=== PATIENT | male | born 1950 | race Caucasian/White ===

== ENCOUNTER 2017-11-14 03:02 | Emergency (ER) | payer OTHER ==
[~2017-11-14] VITALS: Ht 180.3 cm; Wt 71.7 kg
[2017-11-14] MEDS ORDERED: LIDOCAINE 2% JEL UROJET 10 ML MM ONE ×2 (03:10→03:30)
--- NOTE | 2017-11-14 03:16 | NUR ---
PT AA/OX4 COMPLAINING OF DIFFICULTY URNINATING. NAD. VSS. STABLE CONDITION. AWAITING MD EVAL/ORDERS
[2017-11-14 03:48] LABS: APPEARANCE,URINE SL CLOUDY (CLEAR); BILIRUBIN,URINE NEGATIVE (NEGATIVE); BLOOD, URINE 2+ Ery/uL (NEGATIVE); COLOR,URINE YELLOW (YELLOW); KETONES,URINE NEGATIVE (NEGATIVE); LEUKOCYTE ESTERASE ,URINE TRACE (NEGATIVE); NITRITE, URINE POSITIVE (NEGATIVE); PROTEIN,URINE 1+ mg/dl (NEGATIVE); UGLUCOSE NEGATIVE (NEGATIVE); UROBILINOGEN,URINE 0.2 EU/dL (0.2)
[2017-11-14 03:48] LABS: BASOPHILS % (AUTO) 0.6 % (0.0-2.0); EOSINOPHILS % (AUTO) 3.1 % (0.0-6.0); HEMATOCRIT 42 % (39-51); HEMOGLOBIN 13.8 g/dL (13.5-17.5); LYMPHOCYTES # (AUTO) 1.3 /CMM (0.8-4.8); LYMPHOCYTES % (AUTO) 18.1 % (20.0-44.0); MEAN CORPUSCULAR HEMOGLOBIN 30 PG (26.0-33.0); MEAN CORPUSCULAR HGB CONC 33 g/dl (31.0-36.0); MEAN CORPUSCULAR VOLUME 92 fL (80-96); MONOCYTES # (AUTO) 0.5 /CMM (0.1-1.30); MONOCYTES % (AUTO) 7.2 % (2.0-12.0); PLATELET COUNT (AUTO) 225 /CMM (150-450); RDW COEFFICIENT OF VARIATION 14.2 (11.5-15.0); RED BLOOD CELL COUNT(AUTO) 4.55 MIL/uL (4.5-6.0)
[2017-11-14 03:54] LABS: BACTERIA,URINE Many /HPF (None Seen); SQUAMOUS EPITHELIAL CELL,UR Rare /HPF (None Seen); WBC,URINE 81-100 /HPF (0-3)
[2017-11-14 03:57] LABS: CALCIUM, SERUM 8.9 mg/dL (8.5-10.1); CREATININE 1.1 mg/dL (0.6-1.3); POTASSIUM 3.9 mmol/L (3.5-5.1)
[2017-11-14] MEDS ORDERED: NITROFURANTOIN/NITROFURAN MAC 100 MG CAPSULE PO ONE (04:30)
[2017-11-14] MEDS ORDERED: NITROFURANTOIN/NITROFURAN MAC 100 MG CAPSULE ONE (04:36)
--- NOTE | 2017-11-14 04:41 | NUR ---
PT RESTING COMFORTABLY. NAD. VSS.
--- NOTE | 2017-11-14 05:07 | NUR ---
Patient discharged to home in stable condition. Written and verbal after care instructions given. Patient verbalizes understanding of instruction. PT AMBULATORY WITH STEADY GAIT UPON D/C.
[2017-11-14 05:09] VITALS: BP 112/78
== END 2017-11-14 05:09 | disposition home or self-care (01) ==
LOC: ER 03:06
DX: R33.8 Other retention of urine (principal); N40.0 Benign prostatic hyperplasia without lower urinary tract symptoms
CPT/HCPCS: 36415; 51702; 80048; 81001; 85025; 87086; 93005; 99285; A4606; J3490; 81000-TC; 87186-TC; Z7610

== ENCOUNTER 2022-08-10 08:17 | Inpatient (IN) | payer OTHER ==
[~2022-08-10] VITALS: Ht 180.3 cm; Wt 69.4 kg
[2022-08-10] MEDS ORDERED: CYCLOBENZAPRINE 10 MG TABLET ONE (10:52)
[2022-08-10] MEDS ORDERED: CYCLOBENZAPRINE 10 MG TABLET PO ONE (11:00)
--- NOTE | 2022-08-10 11:03 | NUR ---
BIB [facility] HIT WHILE CROSSING , RT LG PAIN 5 AMBULATORY NO LOSS OF CONSCIOUSNESSM, NOT IN DISTRESS. NURSING ORDERS CARRIED OUT
[2022-08-10] MEDS ORDERED: MORPHINE SULFATE INJ 2 MG/ML DISP.SYRIN ONE (11:24)
--- NOTE | 2022-08-10 11:26 | NUR ---
PA AT BEDSIDE FOR EVAL, ORDERED IMMOBILIZATION OF THE RT ARM, FOR IMAGING OF RT LEG,KNEE
[2022-08-10] MEDS ORDERED: MORPHINE SULFATE INJ 2 MG/ML DISP.SYRIN IV ONE (11:30)
--- NOTE | 2022-08-10 11:35 | NUR ---
BLOOD DRAWN AND SENT TO LAB
--- NOTE | 2022-08-10 11:40 | NUR ---
PT THINGS PUT IN A CLOTHES BAG AT BEDSIDE
[2022-08-10 11:41] LABS: BASOPHILS # (AUTO) 0.1 K/uL (0.0-0.2); BASOPHILS % (AUTO) 0.5 % (0.0-2.0); EOSINOPHILS % (AUTO) 0.1 % (0.0-6.0); HEMATOCRIT 50 % (39-51); HEMOGLOBIN 16.9 g/dL (13.5-17.5); LYMPHOCYTES # (AUTO) 0.5 K/uL (0.8-4.8); LYMPHOCYTES % (AUTO) 4.7 % (20.0-44.0); MEAN CORPUSCULAR HGB CONC 34 g/dl (31.0-36.0); MEAN CORPUSCULAR VOLUME 89 fL (80-96); MONOCYTES # (AUTO) 0.7 K/uL (0.1-1.30); MONOCYTES % (AUTO) 6.3 % (2.0-12.0); NEUTROPHILS # (AUTO) 9.5 K/uL (1.8-8.9); NEUTROPHILS % (AUTO) 88.4 % (43.0-81.0); PLATELET COUNT (AUTO) 157 K/uL (150-450); RED BLOOD CELL COUNT(AUTO) 5.59 MIL/uL (4.5-6.0); WHITE BLOOD COUNT (AUTO) 10.7 K/uL (4.3-11.0)
--- NOTE | 2022-08-10 11:48 | NUR ---
COVID SWAB DONE AND SENT TO LAB
[2022-08-10 11:51] LABS: CALCIUM, SERUM 9.5 mg/dL (8.5-10.1); POTASSIUM 3.8 mmol/L (3.5-5.1)
[2022-08-10] MEDS ORDERED: TAMS-12 PO (12:11)
[2022-08-10] MEDS ORDERED: ACETAMINOPHEN 325 MG TABLET PO PRN (14:00)
[2022-08-10] MEDS ORDERED: MORPHINE SULFATE INJ 2 MG/ML DISP.SYRIN IV PRN (14:00)
[2022-08-10] MEDS ORDERED: ONDANSETRON HCL/PF 4 MG/2 ML VIAL IVP PRN (14:00)
[2022-08-10] MEDS ORDERED: MULT-447 PO (14:15)
[2022-08-10] MEDS ORDERED: CHOL100043 PO (14:15)
--- NOTE | 2022-08-10 14:40 | NUR ---
GOT BED 309-1 ADMITTING INFORMED.
--- NOTE | 2022-08-10 15:00 | NUR ---
Nolberto cates in [facility] - 08/10/22 at 1501 by KAI pt roddy to JAIMEE JONAS 309-1
--- NOTE | 2022-08-10 15:01 | NUR ---
REPORT GIVEN TO JAIMEE JONAS FOR PT BISHOP FOR CONTINUE TREATMENT
--- NOTE | 2022-08-10 15:45 | NUR ---
MS SPRAY BLENDER NOTE RECEIVED PATIENT VIA GURNEY FROM ER AT 1330H ACCOMPANIED BY 1 ER STAFF. WITH ADMITTING DIAGNOSIS OF RIGHT TIBIAL PLATEAU FRACTURE. PATIENT IS AWAKE, A/O X4, VERBALLY RESPONSIVE, NICARAGUAN SPEAKING. PATIENT WITH MINIMAL PAIN ON RIGHT SHOULDER, NO MEDS GIVEN. NOTED WITH IV ACCESS ON LEFT AC, G #20, SL. BODY ASSESSMENT DONE, SKIN GENERALLY INTACT EXCEPT FROM WOUND ON LEFT ELBOW AND LEFT KNEE. PLACE PATIENT UNDER M/S CARE, V/S TAKEN, STABLE. SAFETY MEASURES IN PLACED, BED IN LOW AND LOCKED POSITION; BED ALARM ON; SIDE RAILS UP X2; CALL LIGHT WITHIN EASY REACH. WILL CONTINUE TO MONITOR PATIENT. Addendum: 08/10/22 at 1901 by PRITESH BATEMAN RN CORRECTION OF ERROR; INSTEAD OF LEFT ELBOW AND LEFT KNEE, IT IS RIGHT ELBOW AND RIGHT KNEE WOUND.
--- NOTE | 2022-08-10 16:15 | NUR ---
MS RN COMFORT MEASURES PROVIDED. PATIENT HAS NO COMPLAINS OF PAIN.
--- NOTE | 2022-08-10 19:06 | NUR ---
MS RN CLOSING NOTES: PATIENT AWAKE IN BED, A/O X4. NO COMPLAINS OF PAIN OR DISCOMFORT AT THIS TIME. ON ROOM AIR WITH EQUAL AND UNLABORED BREATHING. WITH IV ACCESS ON LEFT AC, G #20, SL. ABLE TO MAKE NEEDS KNOWN.SAFETY MEASURES IN PLACED, BED IN LOW AND LOCKED POSITION; BED ALARM ON; SIDE RAILS UP X2; CALL LIGHT WITHIN EASY REACH. WILL ENDORSE TO NIGHT NURSE FOR CONTINUITY OF CARE.
--- NOTE | 2022-08-10 19:37 | NUR ---
MS RN OPENING NOTE RECEIVED PATIENT IN BED, AWAKE, ALERT AND ORIENTED X4. ABLE TO COMMUNICATE NEEDS WITH THE STAFFS. AFEBRILE AND NOT IN ANY FORM OF ACUTE DISTRESS. BREATHING EVEN AND NON LABORED. NO C/O PAIN OR DISCOMFORT AT THIS TIME. WITH IV ACCESS ON LAC 20G-SL. WITH RIGHT KNEE IMMOBILIZER. SAFETY MEASURES IN PLACE. KEPT BED IN LOCKED AND IN LOW POSITION. SIDE RAILS UP X2. ADVISED TO USE THE CALL LIGHT WHEN IN NEED OF ASSISTANCE.
[2022-08-10 20:00] VITALS: BP 102/63
[2022-08-10] MEDS: HEPARIN SODIUM, PORCINE 5000 UNITS/1 ML VIAL SQ SCH (20:43)
--- NOTE | 2022-08-10 22:00 | NUR ---
MS RN NOTE PATIENT CLAIMED THAT HE HADN'T HAD ANY BOWEL MOVEMENT THIS DAY AND WAS ASKING FOR STOOL SOFTENER. NOTIFIED MD ELECTROPHONIC ENGINEER AND AWAITING FOR ORDER. PROVIDED PRUNE JUICE FOR THE MEANTIME TO HELP WITH BOWEL MOVEMENT.
[2022-08-10] MEDS: SENNOSIDES/DOCUSATE SODIUM 1 TAB TABLET PO SCH (23:58)
--- NOTE | 2022-08-11 00:07 | NUR ---
MS RN NOTE PATIENT C/O MILD PAIN (3/10) ON R LOWER LEG AND R ARM. PRN TYLENOL WAS GIVEN.
[2022-08-11 05:58] LABS: BASOPHILS % (AUTO) 0.5 % (0.0-2.0); EOSINOPHILS % (AUTO) 0.6 % (0.0-6.0); HEMATOCRIT 45 % (39-51); LYMPHOCYTES # (AUTO) 0.7 K/uL (0.8-4.8); LYMPHOCYTES % (AUTO) 9.7 % (20.0-44.0); MEAN CORPUSCULAR HGB CONC 33 g/dl (31.0-36.0); MEAN CORPUSCULAR VOLUME 91 fL (80-96); MONOCYTES # (AUTO) 0.7 K/uL (0.1-1.30); MONOCYTES % (AUTO) 9.1 % (2.0-12.0); NEUTROPHILS # (AUTO) 5.9 K/uL (1.8-8.9); NEUTROPHILS % (AUTO) 80.1 % (43.0-81.0); PLATELET COUNT (AUTO) 126 K/uL (150-450); RED BLOOD CELL COUNT(AUTO) 4.96 MIL/uL (4.5-6.0); WHITE BLOOD COUNT (AUTO) 7.3 K/uL (4.3-11.0)
--- NOTE | 2022-08-11 06:30 | NUR ---
MS RN CLOSING NOTE PATIENT IN BED, ASLEEP BUT EASY TO AROUSE AND RESPONSIVE. ALERT AND ORIENTED X4. ABLE TO COMMUNICATE NEEDS WITH THE STAFFS. AFEBRILE AND NOT IN ANY FORM OF ACUTE DISTRESS. BREATHING EVEN AND NON LABORED. WITH IV ACCESS ON LAC 20G-SL. WITH RIGHT KNEE IMMOBILIZER, NOTED WITH GOOD SKIN CIRCULATION. MEDICATED ORDERED. OFFERED AND ENCOURAGED FLUIDS ORDERED. SAFETY MEASURES IN PLACE. KEPT BED IN LOCKED AND IN LOW POSITION. SIDE RAILS UP X2. ADVISED TO USE THE CALL LIGHT WHEN IN NEED OF ASSISTANCE. ALL NURSING NEEDS ATTENDED. ENDORSED TO INCOMING SHIFT FOR CONTINUITY OF CARE.
[2022-08-11 06:34] LABS: CALCIUM, SERUM 9.2 mg/dL (8.5-10.1); CARBON DIOXIDE 29 mmol/L (21-32); CHLORIDE 105 mmol/L (98-107); CREATININE 0.9 mg/dL (0.6-1.3); GLUCOSE 113 mg/dL (74-106); PHOSPHORUS 4.4 mg/dL (2.5-4.9); POTASSIUM 4.1 mmol/L (3.5-5.1); SODIUM SERUM 142 mmol/L (136-145); UREA NITROGEN, BLOOD 11 mg/dL (7-18)
[2022-08-11 06:35] LABS: ALANINE AMINOTRANSFERASE 26 U/L (12-78); ALBUMIN 3.5 g/dL (3.4-5.0); ALKALINE PHOSPHATASE 69 U/L (46-116); ASPARTATE AMINOTRANSFERASE 16 U/L (15-37); MAGNESIUM 2.3 mg/dL (1.8-2.4)
[2022-08-11 06:36] LABS: TOTAL PROTEIN, SERUM 6.4 g/dL (6.4-8.2)
--- NOTE | 2022-08-11 07:10 | NUR ---
MS RN OPENING NOTE RECEIVED PATIENT IN AWAKE IN BED WITH HOB ELEVATED, AOX4, CALM, ABLE TO FOLLOW COMMANDS AND MAKE NEEDS KNOWN. AFEBRILE AND NOT SHOWING ANY FORM OF ACUTE DISTRESS. ON ROOM AIR, BREATHING EVEN AND NON LABORED. PATENT SALINE LOCK IV ACCESS ON LAC G#20, FLUSHING WELL. WITH RIGHT KNEE IMMOBILIZER, DENIES NOR PAIN OR DISCOMFORT AT THIS TIME. SAFETY MEASURES IN PLACE: BED LOCKED AND IN LOWEST POSITION. SIDE RAILS UP X2, ORIENTED TO ROOM AND STAFF, KNOWS HOW TO USE THE CALL LIGHT WHEN IN NEED OF ASSISTANCE. WILL CONTINUE TO MONITOR.
[2022-08-11] MEDS: HEPARIN SODIUM, PORCINE 5000 UNITS/1 ML VIAL SQ SCH ×2 (08:40→20:02)
[2022-08-11] MEDS: TAMSULOSIN 0.4 MG CAP.SR.24H PO SCH (08:40)
[2022-08-11] MEDS: MAGNESIUM HYDROXIDE 30 ML UDC PO PRN (08:54)
--- NOTE | 2022-08-11 08:54 | NUR ---
RN NOTES - DVT PUMPS ORDERED.
--- NOTE | 2022-08-11 08:58 | NUR ---
RN NOTES - MILK OF MAGNESIA 30 ML GIVEN, PATIENT HAS NO BOWEL MOVEMENT SINCE YESTERDAY. PATIENT GOES DAILY
--- NOTE | 2022-08-11 09:30 | NUR ---
RN NOTES - SCD PUMP APPLIED ON LEFT LEG
[2022-08-11 16:00] VITALS: BP 124/69
--- NOTE | 2022-08-11 19:15 | NUR ---
MS JAIMEE OPENING NOTE PATIENT IN BED, WITH HOB ELEVATED, AWAKE, A0X4. AFEBRILE AND NOT IN ANY FORM OF ACUTE DISTRESS. BREATHING EVEN AND NON LABORED. STILL C/O PAIN OR DISCOMFORT AT THIS TIME. STILL WITH IV ACCESS ON LAC 20G-SL, PATENT AND FLUSHING WELL. WITH RIGHT KNEE IMMOBILIZER. ALL DUE MEDS, ALL NEEDS MET. SAFETY MEASURES MAINTAINED: BED IN LOCKED AND IN LOW POSITION. SIDE RAILS UP X2. ENDORSED TO ASSEMBLER LEATHER GOODS NURSE. Addendum: 08/11/22 at 1936 by ANA MARÍA MIX RN ERRATUM: MS HERMOSILLO CLOSING NOTE
--- NOTE | 2022-08-11 19:23 | NUR ---
MS RN OPENING NOTE RECEIVED PATIENT IN BED, WITH HOB ELEVATED, AWAKE, ALERT AND ORIENTED X4. ABLE TO MAKE NEEDS KNOWN. AFEBRILE AND NOT IN ANY FORM OF ACUTE DISTRESS. BREATHING EVEN AND NON LABORED. NO C/O PAIN OR DISCOMFORT AT THIS TIME. WITH IV ACCESS ON LAC 20G-SL. WITH RIGHT KNEE IMMOBILIZER. SAFETY MEASURES IN PLACE. KEPT BED IN LOCKED AND IN LOW POSITION. SIDE RAILS UP X2. ADVISED TO USE THE CALL LIGHT WHEN IN NEED OF ASSISTANCE.
[2022-08-11 20:00] VITALS: BP 125/70
[2022-08-11] MEDS: SENNOSIDES/DOCUSATE SODIUM 1 TAB TABLET PO SCH (21:21)
--- NOTE | 2022-08-12 06:30 | NUR ---
MS RN CLOSING NOTE PATIENT IN BED, ASLEEP BUT EASY TO AROUSE AND RESPONSIVE. ALERT AND ORIENTED X4. ABLE TO MAKE NEEDS KNOWN. AFEBRILE AND NOT IN ANY FORM OF ACUTE DISTRESS. BREATHING EVEN AND NON LABORED. WITH IV ACCESS ON LAC 20G-SL. WITH RIGHT KNEE IMMOBILIZER, NOTED WITH GOOD SKIN CIRCULATION. MEDICATED ORDERED. ENCOURAGED TO TURN AND REPOSITION EVERY 2 HOURS AND TOLERATED. OFFERED AND ENCOURAGED FLUIDS TOLERATED. SAFETY MEASURES IN PLACE. KEPT BED IN LOCKED AND IN LOW POSITION. SIDE RAILS UP X2. ADVISED TO USE THE CALL LIGHT WHEN IN NEED OF ASSISTANCE. ALL NURSING NEEDS ATTENDED. ENDORSED TO INCOMING SHIFT FOR CONTINUITY OF CARE.
[2022-08-12 07:00] VITALS: BP 118/77
--- NOTE | 2022-08-12 07:15 | NUR ---
MS RN OPENING NOTE PATIENT IN BED, AWAKE A/O X4. ABLE TO MAKE NEEDS KNOWN. AFEBRILE AND NOT IN ANY FORM OF ACUTE DISTRESS. BREATHING EVEN AND NON LABORED. WITH IV ACCESS ON LAC 20G-SL. WITH RIGHT KNEE IMMOBILIZER, NOTED WITH GOOD SKIN CIRCULATION. SAFETY MEASURES IN PLACE. KEPT BED IN LOCKED AND IN LOW POSITION. SIDE RAILS UP X2. ADVISED TO USE THE CALL LIGHT WHEN IN NEED OF ASSISTANCE. WILL CONTINUE TO MONITOR THE PATIENT.
[2022-08-12] MEDS: TAMSULOSIN 0.4 MG CAP.SR.24H PO SCH (09:04)
[2022-08-12] MEDS: HEPARIN SODIUM, PORCINE 5000 UNITS/1 ML VIAL SQ SCH (09:06)
[2022-08-12] MEDS: MAGNESIUM HYDROXIDE 30 ML UDC PO PRN (09:20)
[2022-08-12] MEDS ORDERED: LACTULOSE 10 G/15 ML UDC (PYXIS) PO ONE (10:00)
--- NOTE | 2022-08-12 19:33 | NUR ---
PATIENT DISCHARGED TO [facility] IN STABLE CONDITION. A/O X3, ABLE TO MAKE NEEDS KNOWN, BREATHING EVENLY AND UNLABORED ON ROOM AIR, NO SIGNS OF DISTRESS. PATIENT DOES NOT COMPLAIN OF PAIN AT THIS TIME. PATIENT WAS GIVEN DISCHARGE INSTRUCTION BOTH VERBALLY AND IN WRITING AND SIGNED BY THE PATIENT, ALL VALUABLES ACCOUNTED FOR, FORMS SIGNED. IV ACCESS REMOVED, C/D/I. PATIENT LEFT WITH 3 public policy associate VIA [place] IN STABLE CONDITION
== END 2022-08-12 16:25 | DRG 563 ==
LOC: ER 08:19 → MED 14:42
PROVIDERS: ADMIT Internal Medicine; ATTEND Internal Medicine
DX: S82.141A Displaced bicondylar fracture of right tibia, initial encounter for closed fracture (principal); V03.10XA Pedestrian on foot injured in collision with car, pick-up truck or van in traffic accident, initial encounter; Y92.410 Unspecified street and highway as the place of occurrence of the external cause; Y93.01 Activity, walking, marching and hiking; G80.9 Cerebral palsy, unspecified; Z79.899 Other long term (current) drug therapy; Z20.822 Contact with and (suspected) exposure to COVID-19
CPT/HCPCS: 36415; 73080-TC; 73200-TC; 73552; 73564-TC; 73700-TC; 80048-TC; 80053-TC; 83735-TC; 84100-TC; 85025-TC; 85730-TC; 87081-TC; 97112-TC; 97116-TC; 97530-TC; C9803; G0378; J1644; J2270